=== PATIENT | male | born 1970 | race Two or more races ===

== ENCOUNTER 2016-08-18 03:05 | Emergency (ER) | payer OTHER ==
[~2016-08-18] VITALS: Ht 172.7 cm; Wt 70.8 kg
[2016-08-18] MEDS ORDERED: ONDANSETRON HCL/PF 4 MG/2 ML VIAL ONE (03:13)
[2016-08-18] MEDS ORDERED: ONDANSETRON HCL/PF 4 MG/2 ML VIAL IM ONE (03:30)
[2016-08-18] MEDS ORDERED: IBUPROFEN 400 MG TABLET ONE (09:25)
[2016-08-18] MEDS ORDERED: IBUPROFEN 400 MG TABLET PO ONE (09:30)
[2016-08-18 11:01] VITALS: BP 116/76
== END 2016-08-18 11:02 | disposition home or self-care (01) ==
LOC: ER 03:06
DX: F10.129 Alcohol abuse with intoxication, unspecified (principal); R51 Headache
CPT/HCPCS: 82962; 96372; 99283; A4606; J2405; Z7610